=== PATIENT | male | born 1945 | race Caucasian/White ===

== ENCOUNTER 2017-07-18 10:50 | Emergency (ER) | payer OTHER, MEDICARE ==
[2017-07-18 11:40] LABS: BASOPHILS 0.2 % (0-2); EOSINOPHILS 3.7 % (0-7); HEMATOCRIT 38.9 % (42.0-54.0); HEMOGLOBIN 13.1 g/dL (13.5-17.5); IMMATURE GRANULOCYTES 0.2 % (0-5); LYMPHOCYTES 38.4 % (15-50); MCH 29.4 pg (26.0-34.0); MCHC 33.7 g/dL (31.0-37.0); MCV 87.2 fL (80.0-100.0); MEAN PLATELET VOLUME 9.3 fL (7.4-10.4); MONOCYTES 9.3 % (2-11); NEUTROPHILS 48.2 % (40-80); PLATELET COUNT 112 10x3/uL (130-400); RBC 4.46 10x6/uL (4.20-6.10); RDW 12.8 % (11.5-14.5); WBC 5.2 10x3/uL (4.8-10.8)
[2017-07-18 11:58] LABS: ALBUMIN 3.4 g/dL (3.4-5.0); ALKALINE PHOSPHATASE 103 U/L (46-116); ALT (SGPT) 25 U/L (10-68); BILIRUBIN - TOTAL 0.29 mg/dL (0.2-1.3); CALC OSMOLALITY 282 mosm/kg (275-300); CALCIUM 8.4 mg/dL (8.5-10.1); CARBON DIOXIDE 26.2 mmol/L (21.0-32.0); CHLORIDE - SERUM 105 mmol/L (98-107); CREATININE - SERUM 1.2 mg/dL (0.6-1.3); GLUCOSE 99 mg/dL (74-106); POTASSIUM - SERUM 4.2 mmol/L (3.5-5.1); PROTEIN - SERUM 6.7 g/dL (6.4-8.2); SODIUM 139 mmol/L (136-145); UREA NITROGEN 27 mg/dL (7-18); eGFR NON AFRICAN AMERICAN 63 mL/min (90-120)
[2017-07-18 12:14] LABS: CHOL - HDL RATIO 1.9 ratio (2.3-4.9); CHOLESTEROL, TOTAL 68 mg/dL (0-200); CKMB 1.8 U/L (0.0-3.6); CREATINE KINASE 112 UL (21-232); HDL CHOLESTEROL 36 mg/dL (32-96); LDL CHOLESTEROL 11 mg/dL (0-100); LDL-HDL RATIO 0.3 ratio (1.5-3.5); TRIGLYCERIDE 107 mg/dL (30-200)
[2017-07-18 12:17] LABS: TROPONIN-I 0.349 ng/mL (0.000-0.060)
[2017-07-18 14:59] LABS: CKMB 1.7 U/L (0.0-3.6); CREATINE KINASE 110 UL (21-232)
[2017-07-18 15:00] LABS: TROPONIN-I 0.347 ng/mL (0.000-0.060)
[2017-07-18 20:28] LABS: CREATINE KINASE 102 UL (21-232)
== END 2017-07-18 18:23 | disposition other institution (70) ==
LOC: D.ER 10:50
PROVIDERS: Family Medicine
DX: R07.9 Chest pain, unspecified (principal); I10 Essential (primary) hypertension; J44.9 Chronic obstructive pulmonary disease, unspecified

== ENCOUNTER 2017-11-13 13:43 | Inpatient (IN) | payer MEDICARE ==
[~2017-11-13] VITALS: Ht 172.7 cm; Wt 81.6 kg
--- NOTE | ~2017-11-13 | PN ---
PATIENT:ALFREDO DONOHUE MEDICAL RECORD: [id number] LOCATION:NURY Michael ADMISSION DATE: 11/13/17 PROGRESS NOTE DATE OF SERVICE: 11/19/2017 SUBJECTIVE: No new complaint. OBJECTIVE: The patient is showing improvement. Staff report that he is much more easily redirected and he is taking his medications. Appetite is improved also. On exam, mood is for the most part euthymic. Affect remains shallow and somewhat child-like. Speech remains tangential and nonfocused. Content of thought is negative for overt psychosis. Sensorium shows no change. ASSESSMENT: No change in diagnosis. PLAN: 1. Maintain current medication. 2. Continue supportive therapy. TRANSINT:[id number] Voice Confirmation ID: [id number] DOCUMENT ID: [id number] SHIRA BARBER III, MD at 0932 CC: [id number] DICTATION DATE: 11/19/17 1108 HOSPITAL SUPERINTENDENT: 11/19/17 1346 ADM IN [facility] [address] [place] [address]
--- NOTE | ~2017-11-13 | PN ---
PATIENT:ALFREDO DONOHUE MEDICAL RECORD: [id number] LOCATION:NURY MorrisYamilethKary ADMISSION DATE: 11/13/17 PROGRESS NOTE DATE OF SERVICE: 11/21/2017 SUBJECTIVE: The patient's case was discussed with staff. He has no new complaint. OBJECTIVE: The patient is severely impaired cognitively, making almost no sense in his discussion or answering questions. Clearly, he is severely impaired. ASSESSMENT: No change in diagnoses. PLAN: Supportive and educational interventions were made. Long-term prognosis is guarded. TRANSINT:[id number] Voice Confirmation ID: [id number] DOCUMENT ID: [id number] KEVIN MOYER MD at 1936 CC: [id number] DICTATION DATE: 11/21/17 1433 MANAGER PACU: 11/21/17 1457 ADM IN [facility] [address] [place] [address]
--- NOTE | ~2017-11-13 | PN ---
PATIENT:ALFREDO DONOHUE MEDICAL RECORD: [id number] LOCATION:NURY Michael ADMISSION DATE: 11/13/17 PROGRESS NOTE DATE OF SERVICE: 11/18/2017 SUBJECTIVE: No new complaint. OBJECTIVE: The patient refused his evening meds. He did take from this morning. He continues to show very disorganized thinking and peculiar behavior. He does require redirection from time to time. On exam, mood is somewhat irritable. Affect is brittle. Speech is rambling. Content of thought shows no overt psychosis. Sensorium is unchanged. ASSESSMENT: No change in diagnoses. PLAN: 1. Maintain current medication. 2. Continue supportive therapy. TRANSINT:[id number] Voice Confirmation ID: [id number] DOCUMENT ID: [id number] SHIRA BARBER III, MD at 0601 CC: [id number] DICTATION DATE: 11/18/17 1104 ENGINEER GAS PUMPING STATION: 11/18/17 1220 ADM IN [place] [id number] [place] [address]
--- NOTE | ~2017-11-13 | PN ---
PATIENT:ALFREDO DONOHUE MEDICAL RECORD: [id number] LOCATION:NURY Chavez112 ADMISSION DATE: 11/13/17 PROGRESS NOTE DATE OF SERVICE: 11/20/2017 SUBJECTIVE: No new complaint. OBJECTIVE: The patient is showing improvement. He is sleeping better and is more cooperative with medications, less agitation noted. On exam, mood is slightly anxious. Affect is shallow. Speech is tangential. Content of thought is negative for overt psychosis. Sensorium shows no change. ASSESSMENT: No change in diagnosis. PLAN: 1. Continue current medication. 2. Continue supportive therapy. TRANSINT:[id number] Voice Confirmation ID: [id number] DOCUMENT ID: [id number] SHIRA BARBER III, MD at 0932 CC: [id number] DICTATION DATE: 11/20/17 1058 DIRECTOR OF GROUP SALES: 11/20/17 1220 ADM IN [place] [id number] [place] [id number]
--- NOTE | ~2017-11-13 | PN ---
PATIENT:ALFREDO DONOHUE MEDICAL RECORD: [id number] LOCATION:YAADeric Chavez112 ADMISSION DATE: 11/13/17 PROGRESS NOTE DATE OF SERVICE: 11/22/2017 SUBJECTIVE: The patient's case was discussed with staff. He has no new complaint. OBJECTIVE: The patient is in good behavioral control with limited insight about his condition. He tolerates his medicines well. ASSESSMENT: No change in diagnoses. PLAN: Brief supportive and educational interventions were made. Long-term prognosis is guarded. TRANSINT:[id number] Voice Confirmation ID: [id number] DOCUMENT ID: [id number] KEVIN MOYER MD at 0822 CC: [id number] DICTATION DATE: 11/22/17 1151 PRODUCTION PAINTER: 11/22/17 1210 ADM IN [place] [id number]
--- NOTE | ~2017-11-13 | PSY ---
PATIENT NAME:ALFREDO DONOHUE MEDICAL RECORD: [id number] : 43 LOCATION:NURY Michael2 ADMISSION DATE: 11/13/17 ACCOUNT: [id number] PSYCHIATRIC EVALUATION DATE OF EVALUATION: 11/14/17 IDENTIFYING DATA: [facility] admission for this 72-year-old male. CHIEF COMPLAINT: The patient cannot give a coherent complaint. HISTORY OF PRESENT ILLNESS: This patient has a previous history of dementia with behavioral disturbance. He has had 1 previous psychiatric admission in [place]. The patient is currently a resident of the [facility]. He had been showing intrusive behavior and agitation. He has been sleeping quite poorly. He had been noncompliant with routine care, activities of daily living, and medication. The patient was recently placed on hydrocodone for pain, but his brother, who has guardianship, indicates that this causes behavioral disturbance and psychosis. Because of worsening behavior, the patient is now admitted. PAST MEDICAL HISTORY: Significant for hypertension, hypercholesterolemia, and chronic constipation. MEDICATIONS: Prior to admission included Zocor, Depakote, Effexor, Zoloft, Risperdal, Toprol, lisinopril, Neurontin, and Colace as well as hydrocodone. FAMILY HISTORY: Noncontributory. SOCIAL HISTORY: The patient has 3 children; however, his brother is his guardian and his niece is involved in day to day decision making and care. No known substance abuse. ALLERGIES: None listed. MENTAL STATUS EXAM: On exam, the patient is seated in a Ryanne chair. He is quite confused. His speech is completely incoherent. He does orient to some degree toward the examiner. Mood is anxious. Affect is very brittle. Content of thought does not show overt evidence of psychosis. The patient is oriented only to person. He has global memory impairment. ASSESSMENT: AXIS I: Alzheimer dementia with behavioral disturbance. AXIS II: No diagnosis. AXIS III: Hypercholesterolemia, hypertension, chronic constipation. AXIS IV: Severe. AXIS V: 30. PLAN: 1. The patient is admitted for medication revision as indicated. 2. Diet and activities as tolerated. 3. Daily supportive therapy. TRANSINT:[id number] Voice Confirmation ID: [id number] DOCUMENT ID: [id number] SHIRA BARBER III, MD at 0841 CC: [id number] DICTATION DATE: 11/14/17 1024 KNIFER UP: 11/14/17 1101 ADM IN [facility] [address] [place] [address]
--- NOTE | ~2017-11-13 | DS ---
PATIENT:ALFREDO DONOHUE :43 MEDICAL RECORD: [id number] DISCHARGE SUMMARY ADMISSION DATE: 11/13/17 DISCHARGE DATE: 11/25/17 DATE OF ADMISSION: 11/13/2017 DATE OF DISCHARGE: 11/25/2017 HISTORY: The patient was admitted with a previous history of dementia with behavioral disturbance. He is a resident of a local [place] [facility]. He had been showing agitated and intrusive behavior and had been noncompliant with routine care. For further details, please see previously dictated history. COURSE IN THE HOSPITAL: The patient was seen in consultation by Dr. Briseida Jacobo. She noted the presence of hypertension, hyperlipidemia, atherosclerotic heart disease and COPD. The patient was treated with a combination of Depakote Sprinkle 375 mg twice a day and Risperdal 1 mg daily. He was also given Ativan on a p.r.n. basis for agitation. He was also maintained on Megace 20 mg daily for appetite stimulation, Zocor, vitamin D supplements, Toprol-XL, lisinopril, Neurontin, aspirin, Colace and p.r.n. Dulcolax. The patient over the course of the hospitalization would become argumentative from time to time, but showed a marked improvement in terms of his aggression and agitation. Staff noted that when he was approached slowly and deliberately that he would be much more compliant by the time of discharge, it was felt the patient had achieved sufficient behavioral control to return to the [place] [facility] [place] environment. FINAL DIAGNOSES: AXIS I: Alzheimer dementia with behavioral disturbance. AXIS II: No diagnosis. AXIS III: Hypercholesterolemia, hypertension, chronic constipation. AXIS IV: Moderate. AXIS V: 38. PLAN: 1. The patient is discharged on current medication. 2. Diet and activities as tolerated. 3. Follow up with primary care physician. TRANSINT:[id number] Voice Confirmation ID: [id number] DOCUMENT ID: [id number] SHIRA BARBER III, MD at 1046 CC: [id number] DICTATION DATE: 11/25/17 1233 SYSTEMS TECHNOLOGIST: 11/26/17 0819 DIS IN 11/25/17 [place] [address] [place] [address]
--- NOTE | ~2017-11-13 | PN ---
PATIENT:ALFREDO DONOHUE MEDICAL RECORD: [id number] LOCATION:NURY Michael ADMISSION DATE: 11/13/17 PROGRESS NOTE DATE OF SERVICE: 11/24/2017 SUBJECTIVE: No new complaint noted. OBJECTIVE: The patient has been eating somewhat poorly. He is occasionally restless during activities of daily living, but otherwise has been cooperative. On exam, mood is for the most part euthymic. Affect is very shallow and childlike. Speech is tangential. Content of thought focuses on somatic concerns. Sensorium shows no change. ASSESSMENT: No change in diagnosis. PLAN: 1. We will add Megace 20 mg daily. 2. Maintain other current medications. 3. Anticipate discharge tomorrow. TRANSINT:[id number] Voice Confirmation ID: [id number] DOCUMENT ID: [id number] SHIRA BARBER III, MD at 0435 CC: [id number] DICTATION DATE: 11/24/17 1156 BOARD FILLER: 11/24/17 1220 ADM IN [place] [id number] [place] [address]
--- NOTE | ~2017-11-13 | PN ---
PATIENT:ALFREDO DONOHUE MEDICAL RECORD: [id number] LOCATION:NURY Michael ADMISSION DATE: 11/13/17 PROGRESS NOTE DATE OF SERVICE: 11/17/2017 SUBJECTIVE: No new coherent complaint is offered. OBJECTIVE: The patient remains delusional. He exhibits paranoid delusional ideation. He has been frequently uncooperative with medications, did receive p.r.n. early this morning. On exam, the patient continues to show disorganized speech. There is some evidence of visual hallucinosis. Affect is somewhat brittle. Sensorium shows no improvement. ASSESSMENT: No change in diagnoses. PLAN: 1. Maintain current medication. 2. Continue supportive therapy. TRANSINT:[id number] Voice Confirmation ID: [id number] DOCUMENT ID: [id number] SHIRA BARBER III, MD at 0810 CC: [id number] DICTATION DATE: 11/17/17 1211 LINE TENDER: 11/17/17 1249 ADM IN [place] [id number] [place] [address]
[2017-11-13 14:36] LABS: BASOPHILS 0.1 % (0-2); EOSINOPHILS 1.4 % (0-7); HEMATOCRIT 40.4 % (42.0-54.0); HEMOGLOBIN 13.1 g/dL (13.5-17.5); IMMATURE GRANULOCYTES 0.1 % (0-5); MCH 29.2 pg (26.0-34.0); MCHC 32.4 g/dL (31.0-37.0); MCV 90.2 fL (80.0-100.0); MEAN PLATELET VOLUME 9.1 fL (7.4-10.4); MONOCYTES 9.8 % (2-11); NEUTROPHILS 67.6 % (40-80); PLATELET COUNT 137 10x3/uL (130-400); RBC 4.48 10x6/uL (4.20-6.10); RDW 13.1 % (11.5-14.5)
[2017-11-13 14:58] LABS: ALBUMIN 3.5 g/dL (3.4-5.0); ANION GAP 14.4 mmol/L (8-16); BILIRUBIN - TOTAL 0.39 mg/dL (0.2-1.3); CREATININE - SERUM 1.3 mg/dL (0.6-1.3); POTASSIUM - SERUM 4.4 mmol/L (3.5-5.1); PROTEIN - SERUM 7.7 g/dL (6.4-8.2)
[2017-11-13 15:46] LABS: APPEARANCE CLEAR (CLEAR); BILIRUBIN NEGATIVE (NEGATIVE); COLOR YELLOW (YELLOW); GLUCOSE NEGATIVE (NEGATIVE); KETONE MODERATE mg/dL (NEGATIVE); NITRITE NEGATIVE (NEGATIVE); PROTEIN NEGATIVE (NEGATIVE); UROBILINOGEN NORMAL (NORMAL)
[2017-11-13 15:54] LABS: RED CELLS - URINE 0-5 /hpf (0-5); WHITE CELLS - URINE 0-5 /hpf (0-5)
[2017-11-13 15:55] LABS: BACTERIA FEW /hpf (NONE SEEN)
[2017-11-13] MEDS ORDERED: ACETAMINOPHEN325 MG PO ×2 (17:27→17:28)
[2017-11-13] MEDS ORDERED: DEPAKOTE125 MG PO (17:33)
[2017-11-13] MEDS ORDERED: COLACE100 MG PO (17:34)
[2017-11-13] MEDS ORDERED: DEPAKOTE250 MG PO (17:34)
[2017-11-13] MEDS ORDERED: DULCOLAX10 MG/SUPP RC (17:35)
[2017-11-13] MEDS ORDERED: BISACODYL5 MG PO (17:36)
[2017-11-13] MEDS ORDERED: ECOTRIN325 MG PO (17:36)
[2017-11-13] MEDS ORDERED: EFFEXOR XR75 MG PO (17:37)
[2017-11-13] MEDS ORDERED: NEURONTIN600 MG PO (17:38)
[2017-11-13] MEDS ORDERED: PRINIVIL20 MG PO (17:38)
[2017-11-13] MEDS ORDERED: MILK OF MAGNESI30 ML PO (17:40)
[2017-11-13] MEDS ORDERED: TOPROL XL50 MG PO (17:40)
[2017-11-13] MEDS ORDERED: CENTRUM SILVER1 TA1 PO (17:42)
[2017-11-13] MEDS ORDERED: MYLANTA / MAALO30 ML PO (17:46)
[2017-11-13] MEDS ORDERED: HYDROCODONE-APA1 TAB PO ×2 (17:47→17:49)
[2017-11-13] MEDS ORDERED: RISPERDAL1 MG PO (17:49)
[2017-11-13] MEDS ORDERED: ZOCOR20 MG PO (17:50)
[2017-11-13] MEDS ORDERED: ZOLOFT25 MG PO (17:51)
[2017-11-13] MEDS ORDERED: MUSCLE RUB (17:54)
[2017-11-13 18:49] VITALS: BP 133/94; BMI 27.4
[2017-11-13 20:20] LABS: CHOL - HDL RATIO 2.1 ratio (2.3-4.9); LDL-HDL RATIO 0.9 ratio (1.5-3.5); THYROID STIMULATING HORMONE 0.84 uIU/mL (0.36-3.74); VALPROIC ACID (DEPAKOTE) 16.2 ug/mL (50.0-100.0)
[2017-11-14 07:32] LABS: RAPID PLASMA REAGIN Non Reactive (Non Reactive); VITAMIN D 25 HYDROXY 17.7 ng/mL (30.0-100.0)
[2017-11-14 08:02] VITALS: BP 176/93
[2017-11-14 20:03] VITALS: BP 148/56
[2017-11-15 07:21] LABS: FOLATE (FOLIC ACID) - SERUM 18.6 ng/mL (>3.0)
[2017-11-15 09:26] VITALS: BP 153/66
[2017-11-16 07:56] VITALS: BP 135/69
[2017-11-16 19:47] VITALS: BP 137/81
[2017-11-17 07:00] VITALS: BP 125/90
[2017-11-17 16:19] VITALS: BMI 27.4
[2017-11-18 09:24] VITALS: BP 128/64
[2017-11-19 08:01] VITALS: BP 123/51
[2017-11-19 14:11] VITALS: Ht 172.7 cm; Wt 81.6 kg
[2017-11-20 09:57] VITALS: BP 107/43
[2017-11-20 20:33] VITALS: BP 140/70
[2017-11-21 07:50] VITALS: BP 104/65
[2017-11-22 07:44] VITALS: BP 105/49
[2017-11-22 19:56] VITALS: BP 112/90
[2017-11-23 07:23] VITALS: BP 129/53
[2017-11-24 07:00] VITALS: BP 130/75
[2017-11-24] MEDS ORDERED: MEGACE40 MG PO (11:50)
[2017-11-24] MEDS ORDERED: DEPAKOTE SPRIN125 MG PO (11:52)
[2017-11-24] MEDS ORDERED: THERAGRAN M [BK1 TAB PO (11:53)
[2017-11-24] MEDS ORDERED: VITAMIN D5000 UNIT PO (11:53)
[2017-11-25 07:49] VITALS: BP 104/62
== END 2017-11-25 14:51 | DRG 57 ==
LOC: D.ER 13:43 → D.PSYCH 16:42 → EDBD 11-25 14:51
PROVIDERS: Family Medicine; Psychiatry & Neurology Psychiatry
DX: G30.9 Alzheimer's disease, unspecified (principal); F02.81 Dementia in other diseases classified elsewhere, unspecified severity, with behavioral disturbance; N17.9 Acute kidney failure, unspecified; E78.00 Pure hypercholesterolemia, unspecified; I10 Essential (primary) hypertension; K59.09 Other constipation; J44.9 Chronic obstructive pulmonary disease, unspecified; E78.5 Hyperlipidemia, unspecified; I25.10 Atherosclerotic heart disease of native coronary artery without angina pectoris; Z95.0 Presence of cardiac pacemaker; E55.9 Vitamin D deficiency, unspecified; F32.9 Major depressive disorder, single episode, unspecified

== ENCOUNTER 2017-11-26 16:19 | Inpatient (IN) | payer MEDICARE ==
[~2017-11-26] VITALS: Ht 160 cm; Wt 70.5 kg
--- NOTE | ~2017-11-26 | PN ---
PATIENT:ALFREDO DONOHUE MEDICAL RECORD: [id number] LOCATION:NURY Michael ADMISSION DATE: 11/26/17 PROGRESS NOTE DATE OF SERVICE: 12/02/2017 SUBJECTIVE: No new complaint. OBJECTIVE: Staff report the patient again has become combative. He does require redirection frequently. On exam, mood is irritable. Affect is childlike. Speech is nonsensical. Content of thought indicates nonspecific paranoid ideation. Sensorium does not show change. ASSESSMENT: No change in diagnosis. PLAN: 1. Change Risperdal to 1.5 mg b.i.d. 2. Continue other current medication. 3. Continue supportive therapy. TRANSINT:[id number] Voice Confirmation ID: [id number] DOCUMENT ID: [id number] SHIRA BARBER III, MD at 1026 CC: [id number] DICTATION DATE: 12/02/17 1109 THEATRICAL VARIETY AGENT: 12/02/17 1222 ADM IN [place] [id number] [place] [address]
--- NOTE | ~2017-11-26 | PN ---
PATIENT:ALFREDO DONOHUE MEDICAL RECORD: [id number] LOCATION:NURY Michael ADMISSION DATE: 11/26/17 PROGRESS NOTE DATE OF SERVICE: 12/08/2017 SUBJECTIVE: No new complaint noted. OBJECTIVE: The patient is somewhat more drowsy today. Case management is continuing to work on placement options. The patient had a valproic acid blood level that is just below the therapeutic range and around 49. On exam, mood is euthymic. Affect very constricted. Speech is very terse. Content of thought unchanged. Sensorium unchanged. ASSESSMENT: No change in diagnosis. PLAN: 1. We will reduce Risperdal to 0.5 mg b.i.d. 2. Continue current dose of Depakote. 3. Continue other medications and supportive therapy. TRANSINT:[id number] Voice Confirmation ID: [id number] DOCUMENT ID: [id number] SHIRA BARBER III, MD at 0814 CC: [id number] DICTATION DATE: 12/08/17 1104 ACCOUNT EXECUTIVE TRAINEE: 12/08/17 1228 ADM IN [place] [id number] [place] [address]
--- NOTE | ~2017-11-26 | PSY ---
PATIENT NAME:ALFREDO DONOHUE MEDICAL RECORD: [id number] : 43 LOCATION:NURY Mensah ADMISSION DATE: 11/26/17 ACCOUNT: [id number] PSYCHIATRIC EVALUATION DATE OF EVALUATION: 11/27/17 IDENTIFYING DATA: A 72-year-old white male, readmitted to [facility], less than 48 hours after discharge. HISTORY OF PRESENT ILLNESS: The patient has a history of Alzheimer dementia with behavioral disturbance. He had been admitted to this facility between 11/13/2017 and 11/25/2017. He had begun to show combativeness and agitation prior to being admitted the first time, he had been noncompliant with medication. He was treated over the course of the hospitalization with combination of Depakote and Risperdal. However, upon return to the group home, he once again became quite combative and was sent back for further medication adjustment. PAST MEDICAL HISTORY: No interval change. The patient has ongoing diagnoses of hypertension, hypercholesterolemia, and chronic constipation. MEDICATIONS: No change since discharge. FAMILY HISTORY: Noncontributory. SOCIAL HISTORY: The patient's brother is his guardian. He has 3 children. ALLERGIES: None listed. MENTAL STATUS: On interview, the patient is clearly confused. He has not been combative since readmission. Affect is shallow. Speech is nonfocused, tangential, and rambling. Content of thought shows nonspecific paranoid ideation. The patient is oriented only to person with global memory impairment. ASSESSMENT: AXIS I: Alzheimer dementia with behavioral disturbance. AXIS II: No diagnosis. AXIS III: Hypercholesterolemia, hypertension, chronic constipation. AXIS IV: Moderate. AXIS V: 34. PLAN: The patient is readmitted for further medication adjustment and revision of aftercare plans. TRANSINT:[id number] Voice Confirmation ID: [id number] DOCUMENT ID: [id number] SHIRA BARBER III, MD at 0948 CC: [id number] DICTATION DATE: 11/27/17 1152 VISION REHABILITATION THERAPIST: 11/27/17 1205 ADM IN [place] [id number]
--- NOTE | ~2017-11-26 | PN ---
PATIENT:ALFREDO DONOHUE MEDICAL RECORD: [id number] LOCATION:NURY Michael ADMISSION DATE: 11/26/17 PROGRESS NOTE DATE OF SERVICE: 12/03/2017 SUBJECTIVE: No coherent complaint. OBJECTIVE: Staff reports the patient continues to be quite delusional. He has not been combative, although he has been somewhat uncooperative with care from time to time. He did take his medication, however. On exam, mood is slightly irritable. Affect is shallow. Speech is rambling and incoherent. Content of thought positive for delusional ideation. Sensorium shows no change. ASSESSMENT: No change in diagnosis. PLAN: 1. Maintain current medication. 2. Continue supportive therapy. TRANSINT:[id number] Voice Confirmation ID: [id number] DOCUMENT ID: [id number] SHIRA BARBER III, MD at 1015 CC: [id number] DICTATION DATE: 12/03/17 1111 GENERAL LABOR: 12/03/17 1425 ADM IN [place] [address] [place] [id number]
--- NOTE | ~2017-11-26 | PN ---
PATIENT:ALFREDO DONOHUE MEDICAL RECORD: [id number] LOCATION:NURY Michael ADMISSION DATE: 11/26/17 PROGRESS NOTE DATE OF SERVICE: 12/06/2017 SUBJECTIVE: No new complaint. OBJECTIVE: The patient has been somewhat more cooperative overall. He continues to show some degree of drowsiness, but not as significant as yesterday. On exam, mood is euthymic. Affect is reserved. Speech is very terse. Content of thought is negative for overt psychosis. Sensorium unchanged. ASSESSMENT: No change in diagnosis. PLAN: 1. Continue current medication. 2. Continue supportive therapy. TRANSINT:[id number] Voice Confirmation ID: [id number] DOCUMENT ID: [id number] SHIRA BARBER III, MD at 0706 CC: [id number] DICTATION DATE: 12/06/17 0833 PATIENT SAFETY SITTER: 12/06/17 1213 ADM IN [place] [id number] [place] [address]
--- NOTE | ~2017-11-26 | PN ---
PATIENT:ALFREDO DONOHUE MEDICAL RECORD: [id number] LOCATION:NURY Michael ADMISSION DATE: 11/26/17 PROGRESS NOTE DATE OF SERVICE: 12/09/2017 SUBJECTIVE: No new complaint. OBJECTIVE: The patient showed a drop in blood pressure and elevated heart rate, as well as decreased level of consciousness over the last 12 hours. Risperdal has been discontinued. The patient is now stabilizing. He continues to be somewhat combative with personal care. Speech is minimal. Sensorium is unchanged. ASSESSMENT: No change in diagnosis. PLAN: 1. We will discontinue Risperdal and maintain current dose of Depakote. 2. Valproic acid level in the morning. 3. Continue other medications and close observation. TRANSINT:[id number] Voice Confirmation ID: [id number] DOCUMENT ID: [id number] SHIRA BARBER III, MD at 1016 CC: [id number] DICTATION DATE: 12/09/17 1130 DEVELOPMENT COORDINATOR: 12/09/17 1325 DIS IN 12/09/17 [place] [address] [place] [address]
--- NOTE | ~2017-11-26 | PN ---
PATIENT:ALFREDO DONOHUE MEDICAL RECORD: [id number] LOCATION:NURY Michael ADMISSION DATE: 11/26/17 PROGRESS NOTE DATE OF SERVICE: 12/04/2017 SUBJECTIVE: No new complaint. OBJECTIVE: The patient is sleeping better and eating somewhat better. He does become somewhat anxious in the mornings and has been receiving 0.5 mg of Haldol on a p.r.n. basis. On exam, mood for the most part is euthymic. Affect very shallow. Speech is tangential and rambling. Content of thought is negative for overt psychosis. Sensorium shows no change. ASSESSMENT: No change in diagnosis. PLAN: 1. We will add routine Ativan 0.5 mg each morning. 2. Continue other medications. 3. Continue supportive therapy. TRANSINT:[id number] Voice Confirmation ID: [id number] DOCUMENT ID: [id number] SHIRA BARBER III, MD at 1010 CC: [id number] DICTATION DATE: 12/04/17 1116 BARREL DRAINER: 12/04/17 1602 ADM IN [facility] [address] [place] [address]
--- NOTE | ~2017-11-26 | PN ---
PATIENT:ALFREDO DONOHUE MEDICAL RECORD: [id number] LOCATION:NURY Michael ADMISSION DATE: 11/26/17 PROGRESS NOTE DATE OF SERVICE: 11/28/2017 SUBJECTIVE: No new complaint. OBJECTIVE: The patient is tolerating medications. Staff has permitted him to ambulate a little. He attempts to interact with other patients. On exam, mood is euthymic. Affect is very childlike and shallow. Speech tends to be tangential. Content of thought is negative for overt psychosis. Sensorium shows no change. ASSESSMENT: No change in diagnosis. PLAN: 1. Maintain current medication. 2. Continue supportive therapy. TRANSINT:[id number] Voice Confirmation ID: [id number] DOCUMENT ID: [id number] SHIRA BARBER III, MD at 0535 CC: [id number] DICTATION DATE: 11/28/171123 SOFTWARE QUALITY ANALYST: 11/28/17 1328 ADM IN [facility] [address] [place] [address]
--- NOTE | ~2017-11-26 | PN ---
PATIENT:ALFREDO DONOHUE MEDICAL RECORD: [id number] LOCATION:NURY Michael ADMISSION DATE: 11/26/17 PROGRESS NOTE DATE OF SERVICE: 12/01/2017 SUBJECTIVE: No new complaint. OBJECTIVE: The patient continues to be somewhat combative. He did require p.r.n. medication again this morning. On exam, mood is irritable. Affect is very brittle. Speech is tangential. Content of thought shows nonspecific paranoid ideation. Sensorium shows no change. ASSESSMENT: No change in diagnosis. PLAN: 1. Change Risperdal 1 mg b.i.d. 2. Maintain other medications for now. 3. Continue supportive therapy. TRANSINT:[id number] Voice Confirmation ID: [id number] DOCUMENT ID: [id number] SHIRA BARBER III, MD at 0828 CC: [id number] DICTATION DATE: 12/01/17 1205 ELECTRIC GOLF CART REPAIRER: 12/01/17 1236 ADM IN [place] [address] [place] [address]
--- NOTE | ~2017-11-26 | PN ---
PATIENT:ALFREDO DONOHUE MEDICAL RECORD: [id number] LOCATION:NURY Michael ADMISSION DATE: 11/26/17 PROGRESS NOTE DATE OF SERVICE: 12/05/2017 SUBJECTIVE: No new complaint. OBJECTIVE: Staff notes the patient is somewhat more drowsy during the day now. He is taking his medications and is cooperating, but does appear more obtunded. On exam, mood is euthymic. Affect is constricted. Speech terse. Content of thought is negative for overt psychosis. Sensorium unchanged. ASSESSMENT: No change in diagnosis. PLAN: 1. We will discontinue routine Ativan. 2. Continue to monitor and adjust the medications as indicated. 3. Continue supportive therapy. TRANSINT:[id number] Voice Confirmation ID: [id number] DOCUMENT ID: [id number] SHIRA BARBER III, MD at 0628 CC: [id number] DICTATION DATE: 12/05/17 1111 AWAKE OVERNIGHT COUNSELOR: 12/05/17 1443 ADM IN [facility] [address] [place] [id number]
--- NOTE | ~2017-11-26 | DS ---
PATIENT:ALFREDO DONOHUE :43 MEDICAL RECORD: [id number] DISCHARGE SUMMARY ADMISSION DATE: 11/26/17 DISCHARGE DATE: 12/09/17 DATE OF ADMISSION: 11/26/2017. DATE OF DISCHARGE: 12/09/2017. HISTORY OF PRESENT ILLNESS: This patient had previously been admitted between November 13 and November the of this year. [facility], but had begun to show some agitation and [facility] requested readmission. The patient has a previous history of Alzheimer's dementia with behavioral disturbance. During the previous hospitalization, he had been treated with a combination of Depakote and Risperdal which he tolerated quite well. However, once he went back to the [facility], he became noncompliant with medication and again became combative. Because of the continuing presence of combativeness, the patient was readmitted. For further details, please see previously dictated history. COURSE IN THE HOSPITAL: The patient was evaluated by Dr. Briseida Jacobo. She noted in her workup the presence of hyperlipidemia, hypertension, atherosclerotic heart disease, chronic obstructive pulmonary disease, and vitamin D deficiency. It was elected to resume the previous medications that the patient had been taking included Depakote and Risperdal. Risperdal was eventually stabilized at 500 mg b.i.d. At this dosage, the patient achieved a subtherapeutic valproic acid blood level of 49.8, however, this was considered to be sufficient for behavioral control. He was started on Risperdal and dosage was gradually increased to 1 mg twice a day. On the day prior to discharge, the dosage was reduced to 0.5 mg twice a day. During the course of the hospitalization, the patient initially was very resistant to care and frequently combative; however, as the hospitalization progressed, his behavior improved considerably. During his 24 hours prior to discharge; however, the patient began to show increased lethargy. He showed elevated heart rate and hypotension. LABORATORY STUDIES: Revealed evidence of elevated white blood cell count. Concern was that the patient had become septic. Dr. Jacobo was notified and the decision was made to have the patient transferred to the medical floor. FINAL DIAGNOSES: AXIS I: Alzheimer dementia with behavioral disturbance. AXIS II: No diagnosis. AXIS III: Probable sepsis, hypertension, chronic obstructive pulmonary disease, hyperlipidemia, and atherosclerotic heart disease. AXIS IV: Severe. AXIS V: 34. PLAN: The patient was transferred to the medical floor for further management. TRANSINT:[id number] Voice Confirmation ID: [id number] DOCUMENT ID: [id number] DISCHARGE SUMMARY REPORT [id number] ALFREDO DONOHUE III, SHIRA Galindo MD at 1016 CC: [id number] DICTATION DATE: 12/09/17 1504 DRAWING FRAME TENDER: 12/09/17 1830 DIS IN 12/09/17 [place] [id number] [place] [id number]
[~2017-11-26 16:19] MED LIST: ACETAMINOPHEN325 MG PO; BISACODYL5 MG PO; CENTRUM SILVER1 TA1 PO; COLACE100 MG PO; DEPAKOTE SPRIN125 MG PO; DEPAKOTE125 MG PO; DEPAKOTE250 MG PO; DULCOLAX10 MG/SUPP RC; ECOTRIN325 MG PO; EFFEXOR XR75 MG PO; HYDROCODONE-APA1 TAB PO; MEGACE40 MG PO; MILK OF MAGNESI30 ML PO; MUSCLE RUB; MYLANTA / MAALO30 ML PO; NEURONTIN600 MG PO; PRINIVIL20 MG PO; RISPERDAL1 MG PO; THERAGRAN M [BK1 TAB PO; TOPROL XL50 MG PO; VITAMIN D5000 UNIT PO; ZOCOR20 MG PO; ZOLOFT25 MG PO
[2017-11-26 17:45] VITALS: BP 91/58; BMI 26.6
[2017-11-27 08:03] VITALS: BP 142/72
[2017-11-27 10:21] VITALS: BMI 26.5
[2017-11-28 08:12] VITALS: BP 121/74
[2017-11-29 09:35] VITALS: BP 102/59
[2017-11-30 08:49] VITALS: BP 135/61
[2017-11-30 20:15] VITALS: BP 140/78
[2017-12-01 09:37] VITALS: BP 111/52
[2017-12-01 10:10] VITALS: Ht 160 cm; Wt 70.5 kg
[2017-12-02 08:26] VITALS: BP 108/58
[2017-12-03 09:33] VITALS: BP 99/53
[2017-12-04 07:00] VITALS: BP 124/86
[2017-12-04 21:53] VITALS: BP 140/64
[2017-12-05 18:43] VITALS: BP 97/64
[2017-12-05 19:27] VITALS: BP 170/65
[2017-12-06 10:33] VITALS: BP 106/53
[2017-12-06 19:42] VITALS: BP 150/75
[2017-12-07 07:00] VITALS: BP 101/56
[2017-12-07 19:36] VITALS: BP 79/44
[2017-12-08 07:47] VITALS: BP 109/79
[2017-12-08 20:32] VITALS: BP 126/58
[2017-12-09 07:25] VITALS: BP 91/50
[2017-12-09 10:30] VITALS: BP 90/70
[2017-12-09 11:17] LABS: BASOPHILS 0.1 % (0-2); EOSINOPHILS 0 % (0-7); HEMATOCRIT 45.1 % (42.0-54.0); HEMOGLOBIN 14.8 g/dL (13.5-17.5); IMMATURE GRANULOCYTES 0.3 % (0-5); LYMPHOCYTES 8.4 % (15-50); MCH 29.7 pg (26.0-34.0); MCHC 32.8 g/dL (31.0-37.0); MCV 90.4 fL (80.0-100.0); MEAN PLATELET VOLUME 10.5 fL (7.4-10.4); MONOCYTES 10.6 % (2-11); NEUTROPHILS 80.6 % (40-80); PLATELET COUNT 124 10x3/uL (130-400); RBC 4.99 10x6/uL (4.20-6.10); RDW 14.2 % (11.5-14.5); WBC 17.3 10x3/uL (4.8-10.8)
[2017-12-09 11:30] VITALS: BP 84/42
[2017-12-09 11:41] LABS: ANION GAP 21.9 mmol/L (8-16); CALCIUM 8.5 mg/dL (8.5-10.1); CARBON DIOXIDE 20.9 mmol/L (21.0-32.0); CREATININE - SERUM 4.5 mg/dL (0.6-1.3); POTASSIUM - SERUM 4.8 mmol/L (3.5-5.1)
== END 2017-12-09 13:15 | disposition short-term general hospital (02) | DRG 56 ==
LOC: D.PSYCH 16:19 → EDBD 12-09 13:15
PROVIDERS: Psychiatry & Neurology Psychiatry
DX: G30.9 Alzheimer's disease, unspecified (principal); A41.9 Sepsis, unspecified organism; F02.81 Dementia in other diseases classified elsewhere, unspecified severity, with behavioral disturbance; I10 Essential (primary) hypertension; J44.9 Chronic obstructive pulmonary disease, unspecified; E78.5 Hyperlipidemia, unspecified; I25.10 Atherosclerotic heart disease of native coronary artery without angina pectoris; K59.09 Other constipation; F32.9 Major depressive disorder, single episode, unspecified; Z95.0 Presence of cardiac pacemaker; E55.9 Vitamin D deficiency, unspecified; D72.829 Elevated white blood cell count, unspecified; I95.9 Hypotension, unspecified

== ENCOUNTER 2017-12-09 13:49 | Inpatient (IN) | payer MEDICARE, OTHER ==
[~2017-12-09] VITALS: Ht 160 cm; Wt 70.3 kg
--- NOTE | ~2017-12-09 | CN ---
PATIENT NAME:ALFREDO DONOHUE MEDICAL RECORD: [id number] : 43 LOCATION:[facility] D.2106 ADMIT DATE: 12/09/17 ACCOUNT: [id number] CONSULTING PHYSICIAN: NICCI MARI MD REFERRING PHYSICIAN: DEONDRE BAKER MD DATE OF CONSULTATION: 12/10/2017 CARDIOLOGY CONSULT DIAGNOSES: 1. Hypotension. 2. Increased cardiac enzymes compatible with non-Q-wave myocardial infarction. 3. Renal failure. 4. Sepsis. 5. Chronic obstructive pulmonary disease. 6. Dementia. HISTORY OF PRESENT ILLNESS: This is a 72-year-old gentleman from [facility] with decreased consciousness, decreased oral intake for the past few days. When he got here, he was hypotensive, found to be in acute renal failure and his cardiac enzymes are elevated. He does not have a 12-lead ECG. It appears on telemetry that he is sinus with a bundle branch block. He has no known cardiac history. He was given fluid bolus. His blood pressure is better after the fluid bolus, but his systolic blood pressure is still in the 80s. Initially, he was tachycardic. The tachycardia has resolved. He is now sinus in the 50s. His creatinine is 4.6. His hemoglobin is normal at 14.1. PHYSICAL EXAMINATION: GENERAL APPEARANCE: Well-nourished, well-developed, appears stated age. Level of distress, comfortable. PSYCHIATRIC: Mental status, alert, normal affect. Orientation, oriented to time, place and person. EYES: Lids and conjunctiva, noninjected. No discharge, no pallor. ENT: Lips, teeth, gums, normal dentition. Oropharynx, no cyanosis, no pallor. NECK: Carotid arteries, bilateral normal upstroke, no bruits, no thrills. JUGULAR VEINS: No jugular venous pressure or distention. CERVICAL LYMPH NODES: Nontender, nonenlarged. THYROID: Not enlarged. Nontender. No nodules. LUNGS: Respiratory effort, unlabored. CHEST: Normal curvature. No thoracic deformity. No chest wall tenderness. Percussion, resonant. Auscultation, clear. No wheezes, no rales, no rhonchi. CARDIOVASCULAR: Precordial exam, nondisplaced. No heaves or pericardial thrills. Rate and rhythm, regular. Heart sounds, normal S1, normal S2. No S3, no gallop, no rub. Systolic murmur, not heard. Diastolic murmur, not heard. EXTREMITIES: No cyanosis, no edema. Peripheral pulses, full and equal in all extremities, except as noted. No bruits appreciated. ABDOMEN: Soft, nondistended. Normal aorta. No bruit. Nontender. No masses. Liver, nontender, no hepatomegaly. Spleen, nontender, no splenomegaly. MUSCULOSKELETAL: No joint tenderness. No joint swelling. No erythema. NEUROLOGICAL: Normal gait, normal strength, normal tone. SKIN: Warm and dry. OVERALL IMPRESSION: Hypotension, most likely secondary to sepsis most likely the cardiac enzymes are secondary to the renal failure as well as demand ischemia. Obviously with his multiple other medical problems and dementia, we CONSULT REPORT [id number] ALFREDO DONOHUE will only treat this medically; however, with his low blood pressure, cannot treat this medically at this time. We will get an echocardiogram to see his overall LV function. He is currently not taking p.o. Hence, we will just use supportive care at this time. I agree with Dr. Wilson the patient should be a DNR. TRANSINT:[id number] Voice Confirmation ID: [id number] DOCUMENT ID: [id number] NICCI MARI MD at 1444 CC: [id number] DICTATION DATE: 12/10/17930 [employer] MEMBER: 12/10/17 1234 DIS IN 12/12/17 [facility] [address] [place] [address]
--- NOTE | ~2017-12-09 | CN ---
PATIENT NAME:ALFREDO DONOHUE MEDICAL RECORD: [id number] : 43 LOCATION:[facility] D.2106 ADMIT DATE: 12/09/17 ACCOUNT: [id number] CONSULTING PHYSICIAN: ELIZABETH VILLEGAS MD REFERRING PHYSICIAN: BRISEIDA BAKER MD DATE OF CONSULTATION: 12/09/2017 CONSULT REQUESTING PHYSICIAN: Briseida Baker MD REASON FOR CONSULTATION: Septic and hypovolemic shock, hypotension. HISTORY OF PRESENT ILLNESS: Mr. Donohue is a 72-year-old gentleman. Now, he is very lethargic and he opens eyes just by calling, not communicative. The patient was admitted to the [facility]. For the last few days, he was not eating and drinking. This morning, it was found out the patient was hypotensive. He was very lethargic. Lab workup was done. His sodium was 152, BUN was 145, and creatinine was 4.5. Also elevated cardiac enzymes. The patient was transferred to the medical floor. He is given a bolus of normal saline. He is a bit more responsive and the blood pressure came up. REVIEW OF THE SYSTEM: The detail is not obtainable. PAST MEDICAL HISTORY: 1. COPD. 2. Hypertension. 3. Coronary artery disease. 4. Sick sinus syndrome. 5. Depression and dementia. PAST SURGICAL HISTORY: Status post pacemaker placement. ALLERGIES: No known drug allergy. MEDICATIONS: [employer] is reviewed. PERSONAL AND SOCIAL HISTORY: The detail is not obtainable. FAMILY HISTORY: The detail is not obtainable. PHYSICAL EXAMINATION: GENERAL: Now, the patient is lying comfortably in bed. He is not in acute distress. VITAL SIGNS: The blood pressure is 88/50, pulse is 80, respiration is 15, temperature 98.2, SpO2 is 96% on room air. The repeat blood pressure is 162/88. HEENT: Conjunctivae are pink. Sclerae are not icteric. NECK: Neck is supple. There is no JVD. CHEST: There is no wheeze and no rales. HEART: Rate and rhythm regular. Normal sound. No murmur. ABDOMEN: Abdomen is soft. Bowel sounds present. No hepatosplenomegaly. RECTAL: Deferred. EXTREMITIES: No cyanosis. No clubbing. No pedal edema. SKIN: Poor turgor. CENTRAL NERVOUS SYSTEM: The patient just opens eyes by sternal rub. LABORATORY DATA: CBC; the WBC is 17.3, hemoglobin 14.8, hematocrit 45.1, and CONSULT REPORT [id number] ALFREDO DONOHUE platelet count is 124. Neutrophils are 80%. Chemistry; sodium 152, potassium 4.8, chloride 114, bicarb is 20.9, BUN is 145, creatinine 4.5. The troponin is 0.24. Lactic acid is 2.2. Serum osmolality is 353. Glucose 157. ABG; the pH is 7.38, pCO2 is 32, pO2 is 111, bicarb is 19. Ionized calcium is 0.55. Chest radiograph: There is no acute infiltrate. There is mild elevation of the right hemidiaphragm. IMPRESSION: 1. Septic and hypovolemic shock. 2. Dehydration. 3. Acute kidney injury, acute tubular necrosis. 4. Possible UTI. 5. Lactic acidosis. 6. Hyponatremia. 7. COPD. 8. Dementia. 9. Pyhok-gr-wwbiehl mental status changes secondary to sepsis. 10. Leukocytosis. 11. Elevated cardiac enzyme. 12. Mild metabolic acidosis. RECOMMENDATION: The patient already got 500 cc normal saline. I will start him on D5 half normal saline 100 cc per hour. Continue vancomycin and Mefoxin. Start him on Levaquin. Adjust the dose for renal function. Check urine culture and sensitivity, blood culture and sensitivity, type 2. Followup labs and chest radiograph. With history of dementia and multiple comorbidities, the prognosis is guarded. I would recommend the patient DNR. Dr. Baker, thank you for involving me in the care of Mr. Donohue. TRANSINT:[id number] Voice Confirmation ID: [id number] DOCUMENT ID: [id number] ELIZABETH VILLEGAS MD CC: [id number] DICTATION DATE: 12/09/171719 FURNITURE FINISHER HELPER: 12/09/17 1833 ADM IN [facility] [address] [place] [address]
[2017-12-09 15:38] VITALS: BP 88/50
[2017-12-09 20:00] VITALS: BP 83/56
[2017-12-10 01:00] VITALS: BP 81/43
[2017-12-10 04:00] VITALS: BP 80/46
[2017-12-10 05:19] LABS: BASOPHILS 0.1 % (0-2); EOSINOPHILS 0 % (0-7); HEMATOCRIT 43.4 % (42.0-54.0); HEMOGLOBIN 14.1 g/dL (13.5-17.5); IMMATURE GRANULOCYTES 0.4 % (0-5); LYMPHOCYTES 9.1 % (15-50); MCH 29.5 pg (26.0-34.0); MCHC 32.5 g/dL (31.0-37.0); MCV 90.8 fL (80.0-100.0); MEAN PLATELET VOLUME 10.8 fL (7.4-10.4); NEUTROPHILS 81.4 % (40-80); PLATELET COUNT 123 10x3/uL (130-400); RBC 4.78 10x6/uL (4.20-6.10); RDW 14.6 % (11.5-14.5)
[2017-12-10 05:47] LABS: ANION GAP 19.8 mmol/L (8-16); CALCIUM 8.5 mg/dL (8.5-10.1); CARBON DIOXIDE 21.1 mmol/L (21.0-32.0); CREATININE - SERUM 4.6 mg/dL (0.6-1.3); POTASSIUM - SERUM 4.9 mmol/L (3.5-5.1); VANCOMYCIN - RANDOM 15.4 ug/mL (10.0-20.0)
[2017-12-10 05:56] LABS: MAGNESIUM - SERUM 3.7 mg/dL (1.8-2.4)
[2017-12-10 10:03] VITALS: BP 77/35
[2017-12-10 10:07] LABS: CKMB 14.5 U/L (0.0-3.6)
[2017-12-10 10:09] LABS: CREATINE KINASE 1989 UL (21-232); TROPONIN-I 0.294 ng/mL (0.000-0.060)
[2017-12-10 12:04] VITALS: BP 81/49
[2017-12-10 12:11] VITALS: Ht 160 cm; Wt 70.3 kg
[2017-12-10 18:11] VITALS: BP 81/45
[2017-12-10 20:41] VITALS: BP 79/46
[2017-12-11 01:00] VITALS: BP 86/43
[2017-12-11 04:00] VITALS: BP 90/55
[2017-12-11 05:24] LABS: BASOPHILS 0.1 % (0-2); EOSINOPHILS 1.5 % (0-7); HEMATOCRIT 36.7 % (42.0-54.0); HEMOGLOBIN 11.6 g/dL (13.5-17.5); IMMATURE GRANULOCYTES 0.5 % (0-5); LYMPHOCYTES 11.7 % (15-50); MCH 28.9 pg (26.0-34.0); MCHC 31.6 g/dL (31.0-37.0); MCV 91.5 fL (80.0-100.0); MEAN PLATELET VOLUME 10.3 fL (7.4-10.4); MONOCYTES 10.6 % (2-11); NEUTROPHILS 75.6 % (40-80); PLATELET COUNT 107 10x3/uL (130-400); RBC 4.01 10x6/uL (4.20-6.10); RDW 14.4 % (11.5-14.5)
[2017-12-11 05:35] LABS: ANION GAP 13.7 mmol/L (8-16); CARBON DIOXIDE 22.5 mmol/L (21.0-32.0); CREATININE - SERUM 2.5 mg/dL (0.6-1.3); MAGNESIUM - SERUM 3.3 mg/dL (1.8-2.4); POTASSIUM - SERUM 4.2 mmol/L (3.5-5.1)
[2017-12-11 07:24] VITALS: BP 99/46
[2017-12-11 11:43] VITALS: BP 100/50
[2017-12-11 16:39] VITALS: BP 106/65
[2017-12-11 21:48] VITALS: BP 97/39
[2017-12-12 01:00] VITALS: BP 119/66
[2017-12-12 04:00] VITALS: BP 119/84
[2017-12-12 05:28] LABS: BASOPHILS 0.1 % (0-2); EOSINOPHILS 3.3 % (0-7); HEMATOCRIT 35.1 % (42.0-54.0); HEMOGLOBIN 11.1 g/dL (13.5-17.5); IMMATURE GRANULOCYTES 0.4 % (0-5); LYMPHOCYTES 17.5 % (15-50); MCH 28.9 pg (26.0-34.0); MCHC 31.6 g/dL (31.0-37.0); MCV 91.4 fL (80.0-100.0); MEAN PLATELET VOLUME 10.3 fL (7.4-10.4); MONOCYTES 9.2 % (2-11); NEUTROPHILS 69.5 % (40-80); PLATELET COUNT 121 10x3/uL (130-400); RBC 3.84 10x6/uL (4.20-6.10); RDW 14.3 % (11.5-14.5); WBC 8.4 10x3/uL (4.8-10.8)
[2017-12-12 05:44] LABS: ANION GAP 12.5 mmol/L (8-16); CALCIUM 8.4 mg/dL (8.5-10.1); CARBON DIOXIDE 22.9 mmol/L (21.0-32.0); MAGNESIUM - SERUM 3.2 mg/dL (1.8-2.4); POTASSIUM - SERUM 4.4 mmol/L (3.5-5.1); VANCOMYCIN - RANDOM 16.9 ug/mL (10.0-20.0)
[2017-12-12 05:45] LABS: CREATININE - SERUM 1.5 mg/dL (0.6-1.3)
[2017-12-12 08:36] VITALS: BP 112/69
[2017-12-12 11:32] VITALS: BP 114/72
[2017-12-12] MEDS ORDERED: IPRAT-ALBUT 0.5-3 ML UPD (13:05)
[2017-12-12] MEDS ORDERED: NYSTATIN1 PWD TOPICAL (13:05)
[2017-12-12] MEDS ORDERED: CALMOSEPTINE OI71 GM TOPICAL (13:06)
== END 2017-12-12 19:03 | disposition home health service (06) | DRG 871 ==
LOC: EDBD 13:49 → D.M2 13:49 → D.SDCHOLD 12-11 10:43 → D.M2 12-11 10:44
PROVIDERS: Family Medicine; Internal Medicine Pulmonary Disease
DX: A41.9 Sepsis, unspecified organism (principal); R65.21 Severe sepsis with septic shock; R57.1 Hypovolemic shock; N17.0 Acute kidney failure with tubular necrosis; J18.9 Pneumonia, unspecified organism; E87.1 Hypo-osmolality and hyponatremia; I24.8 Other forms of acute ischemic heart disease; F03.91 Unspecified dementia, unspecified severity, with behavioral disturbance; J44.9 Chronic obstructive pulmonary disease, unspecified; R19.7 Diarrhea, unspecified; R62.7 Adult failure to thrive; I25.10 Atherosclerotic heart disease of native coronary artery without angina pectoris; I10 Essential (primary) hypertension; Z95.0 Presence of cardiac pacemaker; B37.2 Candidiasis of skin and nail; L89.309 Pressure ulcer of unspecified buttock, unspecified stage